=== PATIENT | female | born 1955 | race Caucasian/White ===

== ENCOUNTER 2017-06-12 15:36 | Emergency (ER) | payer OTHER, MEDICAID ==
[~2017-06-12] VITALS: Ht 162.6 cm; Wt 47.3 kg
[~2017-06-12 15:36] MED LIST: CARI350T; GABA-283 PO; MORP1TAB21 PO; VENTAER INH
[2017-06-12] MEDS ORDERED: MSIR30TA PO (15:43)
[2017-06-12 16:16] LABS: BASO % 0.3 % (0.0-1.0); EOS # 0.1 10^3/uL (0.0-0.50); EOS % 0.4 % (0.0-3.0); IMMATURE GRANULOCYTE % 0.5 % (0-0); LYMPH # 1.3 10^3/uL (1.5-4.5); LYMPH % 8.4 % (24.0-44.0); MEAN CORPUSCULAR HEMOGLOBIN 32.2 pg (27.0-33.0); MEAN CORPUSCULAR HGB CONC 33.7 g/dl (32.0-36.5); MEAN CORPUSCULAR VOLUME 95.6 fl (80.0-96.0); MONO # 1.1 10^3/uL (0.0-0.8); MONO % 6.8 % (0.0-5.0); NEUTROPHILS # 13.2 10^3/uL (1.8-7.7); NEUTROPHILS % 83.6 % (36.0-66.0); PLATELET COUNT, AUTOMATED 299 10^3/uL (150-450); RED CELL DISTRIBUTION WIDTH 13.3 % (11.5-14.5); WHITE BLOOD COUNT 15.8 10^3/uL (4.0-10.0)
[2017-06-12] MEDS: IPRATROPIUM 0.5MG/ALBUTEROL 2.5MG INH SOL UD 3ML (DUONEB)(J7620) NEB SCH ×3 (16:19→17:19)
[2017-06-12 16:26] LABS: INR 1.09
[2017-06-12 16:39] LABS: ALBUMIN 3.1 GM/DL (3.2-5.2); ALBUMIN/GLOBULIN RATIO 0.97 (1.00-1.93); ALKALINE PHOSPHATASE 89 U/L (45-117); ALT/SGPT 13 U/L (12-78); ANION GAP 5 MEQ/L (8-16); AST/SGOT 13 U/L (7-37); BILIRUBIN,DIRECT 0.2 MG/DL (0.0-0.2); BILIRUBIN,TOTAL 0.4 MG/DL (0.2-1.0); BLOOD UREA NITROGEN 7 MG/DL (7-18); CARBON DIOXIDE LEVEL 28 MEQ/L (21-32); CHLORIDE LEVEL 106 MEQ/L (98-107); GLOMERULAR FILTRATION RATE > 60.0 (>45); GLUCOSE, FASTING 97 MG/DL (80-110); SODIUM LEVEL 139 MEQ/L (136-145); TOTAL PROTEIN 6.3 GM/DL (6.4-8.2)
[2017-06-12] MEDS ORDERED: LASI20TA PO (17:42)
[2017-06-12] MEDS ORDERED: IPRAINH INH (17:42)
[2017-06-12 17:59] VITALS: BP 115/85
--- NOTE | 2017-06-12 19:44 | ECGEPIP ---
Stationary ECG Study [facility] - ED Test Date: 2017-06-12 Pat Name: CHARITY ZAVALETA Department: Room: - Gender: F Exhibit Preparator: SILVER : 1955 Requested By: Ale Lo Order Number: [id number] Reading MD: Shai Sullivan Measurements Intervals [place] Rate: 87 P: 86 ME: 120 QRS: 88 QRSD: 82 T: 55 QT: 327 QTc: 395 Interpretive Statements SINUS RHYTHM LEFT ATRIAL ENLARGEMENT SIMILAR TO 02/28/15 Electronically Signed On 06-12-2017 19:44:32 EST by Shai Sullivan
--- NOTE | 2017-06-13 07:01 | REP ---
PORTABLE CHEST: AP portable view of the chest is performed and compared to multiple prior exams, most recent of which is 10/07/2015. There appear to be increased interstitial markings bilaterally suggesting mild diffuse interstitial edema or infiltrate. Heart is not enlarged. No consolidating infiltrate is seen. Mediastinal silhouette is unremarkable. IMPRESSION: Findings suggesting mild diffuse bilateral interstitial edema or infiltrate. Signed by Nilson Dorsey MD 06/13/2017 08:34 P
== END 2017-06-12 18:05 | disposition home or self-care (01) ==
LOC: M ED 15:36
DX: J44.1 Chronic obstructive pulmonary disease with (acute) exacerbation (principal); I50.9 Heart failure, unspecified; J81.1 Chronic pulmonary edema; F17.200 Nicotine dependence, unspecified, uncomplicated; Z79.899 Other long term (current) drug therapy

== ENCOUNTER 2017-07-12 18:34 | Emergency (ER) | payer MEDICAID, OTHER ==
[2017-07-12] MEDS: BENZONATATE 100 MG CAP PO ×2 (20:13)
[2017-07-12] MEDS: ACETAMINOPHEN 325 MG TAB PO ×2 (20:14)
== END 2017-07-12 21:28 | disposition home or self-care (01) ==
LOC: M ED 18:34
DX: S43.421A Sprain of right rotator cuff capsule, initial encounter (principal); J01.90 Acute sinusitis, unspecified; X50.1XXA Overexertion from prolonged static or awkward postures, initial encounter; Y92.9 Unspecified place or not applicable; Y93.9 Activity, unspecified; M19.011 Primary osteoarthritis, right shoulder; J44.9 Chronic obstructive pulmonary disease, unspecified; F17.200 Nicotine dependence, unspecified, uncomplicated; Z79.891 Long term (current) use of opiate analgesic; Z79.899 Other long term (current) drug therapy
CPT/HCPCS: 73030

== ENCOUNTER → 2017-07-22 | Outpatient (CLI) | payer OTHER ==
[2017-07-22 17:34] LABS: BASO # 0.1 10^3/uL (0.0-0.2); BASO % 0.4 % (0.0-1.0); EOS # 0.2 10^3/uL (0.0-0.50); EOS % 1.9 % (0.0-3.0); HEMOGLOBIN 12.7 g/dl (12.0-16.0); IMMATURE GRANULOCYTE % 0.2 % (0-0); LYMPH # 4.1 10^3/uL (1.5-4.5); LYMPH % 35.3 % (24.0-44.0); MEAN CORPUSCULAR HEMOGLOBIN 31.8 pg (27.0-33.0); MEAN CORPUSCULAR HGB CONC 32.6 g/dl (32.0-36.5); MEAN CORPUSCULAR VOLUME 97.5 fl (80.0-96.0); MONO # 0.9 10^3/uL (0.0-0.8); MONO % 7.4 % (0.0-5.0); NEUTROPHILS # 6.3 10^3/uL (1.8-7.7); NEUTROPHILS % 54.8 % (36.0-66.0); PLATELET COUNT, AUTOMATED 296 10^3/uL (150-450); RED CELL DISTRIBUTION WIDTH 14.2 % (11.5-14.5); WHITE BLOOD COUNT 11.5 10^3/uL (4.0-10.0)
[2017-07-22 17:36] LABS: APPEARANCE, URINE CLEAR (CLEAR); BACTERIA, URINE AUTO NEGATIVE (NEGATIVE); BILIRUBIN, URINE AUTO NEGATIVE (NEGATIVE); BLOOD, URINE BLOOD NEGATIVE (NEGATIVE); COLOR, URINE STRAW (YELLOW); GLUCOSE, URINE (UA) AUTO NEGATIVE (NEGATIVE); KETONE, URINE AUTO NEGATIVE (NEGATIVE); LEUKOCYTE ESTERASE, URINE AUTO NEGATIVE (NEGATIVE); NITRITE, URINE AUTO NEGATIVE (NEGATIVE); PROTEIN, URINE AUTO NEGATIVE (NEGATIVE); RBC, URINE AUTO 1 /HPF (0-3); SPECIFIC GRAVITY URINE AUTO 1.002 (1.002-1.035); SQUAMOUS EPITHELIAL CELL UR AU 1 /HPF (0-6); UROBILINOGEN, URINE AUTO 0.2 mg/dL (0.0-2.0); WBC, URINE AUTO 0 /HPF (0-3)
[2017-07-22 17:40] LABS: ESTIMATED AVERAGE GLUCOSE 114 MG/DL (60-110); HEMOGLOBIN A1c 5.6 %
[2017-07-22 17:49] LABS: ALBUMIN 3.5 GM/DL (3.2-5.2); ALBUMIN/GLOBULIN RATIO 1.21 (1.00-1.93); ALKALINE PHOSPHATASE 79 U/L (45-117); ALT/SGPT 16 U/L (12-78); ANION GAP 7 MEQ/L (8-16); AST/SGOT 14 U/L (7-37); BILIRUBIN,TOTAL 0.2 MG/DL (0.2-1.0); BLOOD UREA NITROGEN 9 MG/DL (7-18); CALCIUM LEVEL 8.3 MG/DL (8.8-10.2); CARBON DIOXIDE LEVEL 31 MEQ/L (21-32); CHLORIDE LEVEL 99 MEQ/L (98-107); CHOLESTEROL LEVEL 184 MG/DL (<200); CHOLESTEROL RISK RATIO 2.421 (<5); CREATININE FOR GFR 0.47 MG/DL (0.55-1.30); FREE T4 0.97 NG/DL (0.76-1.46); GLOMERULAR FILTRATION RATE > 60.0 (>45); GLUCOSE, FASTING 136 MG/DL (70-100); HDL CHOLESTEROL 76 MG/DL (>40); LDL CHOLESTEROL 98.2 MG/DL (<100); NON-HDL-C 108 MG/DL; NT-PRO BNP 161 PG/ML (<125); POTASSIUM SERUM 3.9 MEQ/L (3.5-5.1); SODIUM LEVEL 137 MEQ/L (136-145); TOTAL PROTEIN 6.4 GM/DL (6.4-8.2); TRIGLYCERIDES LEVEL 49 MG/DL (<150)
== END ==
LOC: M LAB 15:48
DX: Z00.00 Encounter for general adult medical examination without abnormal findings (principal); R79.89 Other specified abnormal findings of blood chemistry
CPT/HCPCS: 84443

== ENCOUNTER → 2017-08-30 | Outpatient (CLI) | payer OTHER ==
[2017-08-30 18:56] LABS: BASO # 0.1 10^3/uL (0.0-0.2); BASO % 0.5 % (0.0-1.0); EOS # 0.1 10^3/uL (0.0-0.50); EOS % 1.1 % (0.0-3.0); HEMATOCRIT 42.6 % (36.0-47.0); IMMATURE GRANULOCYTE % 0.3 % (0-3.0); LYMPH # 2.8 10^3/uL (1.5-4.5); LYMPH % 28.3 % (24.0-44.0); MEAN CORPUSCULAR HEMOGLOBIN 31.2 pg (27.0-33.0); MEAN CORPUSCULAR HGB CONC 32.9 g/dl (32.0-36.5); MEAN CORPUSCULAR VOLUME 94.9 fl (80.0-96.0); MONO # 0.5 10^3/uL (0.0-0.8); MONO % 5.3 % (0.0-5.0); NEUTROPHILS # 6.4 10^3/uL (1.8-7.7); NEUTROPHILS % 64.5 % (36.0-66.0); PLATELET COUNT, AUTOMATED 387 10^3/uL (150-450); RED BLOOD COUNT 4.49 10^6/uL (4.00-5.40); RED CELL DISTRIBUTION WIDTH 13.3 % (11.5-14.5); WHITE BLOOD COUNT 9.9 10^3/uL (4.0-10.0)
[2017-08-30 19:00] LABS: APPEARANCE, URINE CLEAR (CLEAR); BACTERIA, URINE AUTO NEGATIVE (NEGATIVE); BILIRUBIN, URINE AUTO NEGATIVE (NEGATIVE); BLOOD, URINE BLOOD 1+ (NEGATIVE); COLOR, URINE YELLOW (YELLOW); GLUCOSE, URINE (UA) AUTO NEGATIVE (NEGATIVE); KETONE, URINE AUTO NEGATIVE (NEGATIVE); LEUKOCYTE ESTERASE, URINE AUTO TRACE (NEGATIVE); MUCUS, URINE SMALL (NEGATIVE); NITRITE, URINE AUTO NEGATIVE (NEGATIVE); PROTEIN, URINE AUTO NEGATIVE (NEGATIVE); RBC, URINE AUTO 1 /HPF (0-3); SPECIFIC GRAVITY URINE AUTO 1.012 (1.002-1.035); SQUAMOUS EPITHELIAL CELL UR AU 2 /HPF (0-6); UROBILINOGEN, URINE AUTO 0.2 mg/dL (0.0-2.0); WBC, URINE AUTO 3 /HPF (0-3)
[2017-08-30 19:17] LABS: ANION GAP 4 MEQ/L (8-16); BLOOD UREA NITROGEN 11 MG/DL (7-18); CALCIUM LEVEL 8.4 MG/DL (8.8-10.2); CARBON DIOXIDE LEVEL 32 MEQ/L (21-32); CHLORIDE LEVEL 100 MEQ/L (98-107); CREATININE FOR GFR 0.48 MG/DL (0.55-1.30); FREE T4 1.06 NG/DL (0.76-1.46); GLOMERULAR FILTRATION RATE > 60.0 (>45); GLUCOSE, FASTING 100 MG/DL (70-100); POTASSIUM SERUM 4.3 MEQ/L (3.5-5.1); SODIUM LEVEL 136 MEQ/L (136-145)
== END ==
LOC: M LAB 18:05
DX: R79.9 Abnormal finding of blood chemistry, unspecified (principal); R82.90 Unspecified abnormal findings in urine; R94.6 Abnormal results of thyroid function studies
CPT/HCPCS: 84443

== ENCOUNTER → 2017-09-16 | Outpatient (CLI) | payer OTHER | LOC: M RAD 14:10 | DX: R31.9 Hematuria, unspecified (principal) | CPT/HCPCS: 76775 ==

== ENCOUNTER → 2017-10-08 | Outpatient (REF) | payer OTHER ==
[2017-10-08 19:49] LABS: APPEARANCE, URINE CLEAR (CLEAR); BACTERIA, URINE AUTO NEGATIVE (NEGATIVE); BILIRUBIN, URINE AUTO NEGATIVE (NEGATIVE); BLOOD, URINE BLOOD NEGATIVE (NEGATIVE); COLOR, URINE YELLOW (YELLOW); GLUCOSE, URINE (UA) AUTO NEGATIVE (NEGATIVE); KETONE, URINE AUTO NEGATIVE (NEGATIVE); LEUKOCYTE ESTERASE, URINE AUTO NEGATIVE (NEGATIVE); NITRITE, URINE AUTO NEGATIVE (NEGATIVE); PROTEIN, URINE AUTO NEGATIVE (NEGATIVE); RBC, URINE AUTO 0 /HPF (0-3); SQUAMOUS EPITHELIAL CELL UR AU 1 /HPF (0-6); UROBILINOGEN, URINE AUTO 0.2 mg/dL (0.0-2.0); WBC, URINE AUTO 1 /HPF (0-3)
== END ==
LOC: M SMT 17:10
DX: R31.9 Hematuria, unspecified (principal)

== ENCOUNTER → 2018-11-27 | Outpatient (CLI) | payer MEDICARE, MEDICAID ==
[~2018-11-27] MED LIST changes: +CARI1TAB7; -CARI350T; -GABA-283 PO; +GABA-845 PO; +IPRAINH INH; +LASI20TA3 PO; +MSIR30TA PO; +TESS100C PO
--- NOTE | 2018-11-28 02:35 | REP ---
Clinical: Chest pain. Acute bronchitis. . Comparison: 06/12/2017 . Technique: PA and lateral. Findings: The mediastinum and cardiac silhouette are normal. The lung kellogg demonstrate chronic interstitial changes without acute consolidation, effusion, or pneumothorax. The skeletal structures are intact and normal. Impression: 1. No acute cardiopulmonary process. Electronically Signed by Paul Ayoub MD 11/28/2018 02:27 A
== END ==
LOC: M SMT 11:54
PROVIDERS: ATTEND Physician Assistant
DX: Z87.09 Personal history of other diseases of the respiratory system (principal)

== ENCOUNTER → 2019-02-17 | Outpatient (CLI) | payer MEDICARE ==
--- NOTE | 2019-02-18 11:58 | REP ---
Clinical: Cervical neck pain with recent trauma/fall. Technique: AP, lateral, flexion/extension, bilateral oblique and open mouth views of the cervical spine. Findings: Moderate multilevel degenerative disc osteophyte complexes noted predominantly involving C3 through C7. Alignment and lordosis maintained. No acute fracture / compression injury or subluxation. Open mouth view demonstrates normal C1-C2 articulation and odontoid process. Impression: Moderate multilevel degenerative spondylosis. No acute fracture / compression injury or subluxation. Electronically Signed by Pual Ayoub MD 02/18/2019 02:57 A
== END ==
LOC: M WUC 09:58
PROVIDERS: ATTEND Physician Assistant
DX: M47.892 Other spondylosis, cervical region (principal)

== ENCOUNTER 2019-03-08 00:54 | Emergency (ER) | payer MEDICARE ==
[~2019-03-08] VITALS: Ht 157.5 cm; Wt 50.0 kg
[2019-03-08] MEDS ORDERED: ALEN70TA74 (01:06)
[2019-03-08] MEDS ORDERED: MORP30TASA (01:06)
[2019-03-08] MEDS ORDERED: GABA600T4 (01:06)
[2019-03-08] MEDS ORDERED: FLUTISP (01:06)
[2019-03-08] MEDS ORDERED: BREO1INH3 (01:06)
[2019-03-08] MEDS ORDERED: MOVA1TAB2 (01:06)
[2019-03-08] MEDS ORDERED: OMEP-221 (01:06)
[2019-03-08] MEDS ORDERED: CITA20TA6 (01:06)
[2019-03-08] MEDS ORDERED: LISI10TA4 (01:06)
[2019-03-08 02:32] LABS: INFLUENZA A AMPLIFICATION NEGATIVE (NEGATIVE); INFLUENZA B AMPLIFICATION NEGATIVE (NEGATIVE)
[2019-03-08 02:43] VITALS: BP 128/67
== END 2019-03-08 02:45 | disposition home or self-care (01) ==
LOC: M ED 00:54
DX: J02.0 Streptococcal pharyngitis (principal); F17.200 Nicotine dependence, unspecified, uncomplicated; I10 Essential (primary) hypertension; J44.9 Chronic obstructive pulmonary disease, unspecified; M54.9 Dorsalgia, unspecified; K21.9 Gastro-esophageal reflux disease without esophagitis; Z79.899 Other long term (current) drug therapy

== ENCOUNTER → 2019-04-26 | Outpatient (CLI) | payer MEDICARE, MEDICAID ==
[~2019-04-26] MED LIST changes: +ALEN70TA74; +BREO1INH3; +CITA20TA6; +FLUTISP; +GABA600T4; +LISI10TA4; +MORP30TASA; +MOVA1TAB2; +OMEP-221
[2019-04-26 18:36] LABS: BLOOD UREA NITROGEN 5 MG/DL (7-18); CREATININE FOR GFR 0.46 MG/DL (0.55-1.30); GLOMERULAR FILTRATION RATE > 60.0 (>45)
== END ==
LOC: M LAB 17:44
PROVIDERS: ATTEND Physician Assistant
DX: Z01.818 Encounter for other preprocedural examination (principal)

== ENCOUNTER → 2019-05-05 | Outpatient (CLI) | payer MEDICARE, MEDICAID ==
[~2019-05-05] MED LIST changes: +PROHANCE 279.3MG/ML 5ML VIAL (A9576) As Ordered ONE
--- NOTE | 2019-05-06 09:35 | REP ---
MRI cervical and thoracic spines: 05/05/2019. Indication: Metastatic workup. Cervical thoracic pain. Comparison: No previous MRI studies are available for comparison. Technique: Multiplanar short and long TR sequences of the cervical and thoracic spines are present including post-gadolinium imaging. 10 ml of IV ProHance were administered. Findings: There are no areas of concerning marrow signal or pathologic gadolinium enhancement. No pathologic compression fracture is present. Endplate degenerative sequelae are noted. The visualized cord is normal. New new There is straightening of the cervical lordosis. Multilevel spondylosis of the cervicothoracic spine are present most pronounced at C4/C5 with minimal flattening of the ventral cord. There is no severe spinal canal narrowing. Minimal disc bulging is noted within the thoracic spine. The neural foramina appear patent. Impression: There is no evidence of an acute cervical thoracic injury or metastatic disease. Atypical hemangioma within T10. Multilevel spondylosis without severe narrowing of the spinal canal or cord compression. No abnormal cord signal. Electronically Signed by Flo Malagon DO 05/06/2019 09:26 A
== END ==
LOC: M RAD 16:31
PROVIDERS: ATTEND Physician Assistant
DX: M54.6 Pain in thoracic spine (principal); M47.892 Other spondylosis, cervical region
CPT/HCPCS: 72156; 72157; A9576

== ENCOUNTER 2021-05-02 20:53 | Emergency (ER) | payer MEDICARE, MEDICAID ==
[~2021-05-02] VITALS: Ht 162.6 cm; Wt 45.9 kg
[~2021-05-02 20:53] MED LIST changes: -ALEN70TA74; +ALEN70TA82; +GABA-283 PO; -GABA-845 PO; +LISI10TA22; -LISI10TA4; -MOVA1TAB2; +NALO25TA; -PROHANCE 279.3MG/ML 5ML VIAL (A9576) As Ordered ONE
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
[2021-05-02 22:01] LABS: RSV AMPLIFICATION NEGATIVE (NEGATIVE)
--- NOTE | 2021-05-02 22:43 | REPVR ---
PROCEDURE INFORMATION: Exam: XR Chest Exam date and time: 05/02/2021 10:20 PM Age: 65 years old Clinical indication: Shortness of breath; Additional info: COPD TECHNIQUE: Imaging protocol: XR of the chest. Views: 2 views. COMPARISON: CR CHEST 2 VIEWS 11/27/2018 12:02 PM FINDINGS: Lungs: There are linear densities in the right upper lobe, which likely represent scarring. No lung consolidation or pulmonary edema is noted. The lungs are well aerated. Pleural spaces: Unremarkable. No pleural effusion. No pneumothorax. Heart/Mediastinum: Unremarkable. No cardiomegaly. Bones/joints: There is an old healed fracture deformity involving the surgical neck of the left humerus. There is a slight levoscoliosis at the thoracolumbar junction. Organs: There are surgical clips in the right upper quadrant of the abdomen. IMPRESSION: No acute findings. Electronically signed by: Alessio Fishman On 05/02/2021 22:42:49 PM
--- OUTSIDE RECORDS SUMMARY | 2021-05-03 00:57 | CCD ---
Author Author [facility] Organization [facility] Address Unknown Phone Unavailable Care Team Providers Care [employer] Name Role Phone Doctor Provided, Family PHYS [...] is protected by Article 27-F of the [place] State Public Health law. If you continue you may have access to information: Regarding HIV / AIDS; Provided by facilities licensed or operated by the [facility] Office of Mental Health; or Provided by the [facility] Office for People With Developmental Disabilities. If such information is present, then the following [facility] mandated warning applies: This information has been [...] law may result in a fine or retirement sentence or both. A general authorization for the release of medical or other information is NOT sufficient authorization for further disc losure. Allergies and Adverse Reactions Type Description Substance Reaction Status Data Source(s ) Drug allergy No Known Drug Allergies No Known Drug Allergies [facility] Family History Family Member Name Family Member Gender Family Member Status Date o f Status Description Data Source(s) Unknown Condition [facility] Unknown Condition [facility] Unknown Condition [facility] Unknown Condition [facility] Unknown Condition [facility] Unknown Condition [facility] Encounters Encounter Providers Location Date Indications Data Source(s ) Outpatient Attender: ROSALBA Amayaerrer: No Famil y Doctor Provided 02/28/2021 02:38:00 PM EDT [facility] Outpatient Attender: ROSALBA DORANTES MD 02/28/2021 12:00:00 AM EDT FOLLOW-UP [facility] FOLLOW-UP Preadmit Attender: ROSALBA DORANTES MD 12/27/2020 12:00 :00 AM EDT FOLLOW-UP [facility] FOLLOW-UP Outpatient Attender: ROSALBA DORANTES MD 11/29/2020 12:00 :00 AM EDT F/U [facility] F/U Outpatient Attender: ROSALBA DORANTES MD 11/28/2020 04:06 :00 PM EDT Z13.89 [facility] Z13.89 Outpatient Attender: ROSALBA Amayaerrer: Den CABALLERO 11/28/2020 02:50:00 PM EDT [facility] Preadmit Attender: ROSALBA DORANTES MD 11/15/2020 12:00 :00 AM EDT FOLLOW-UP [facility] FOLLOW-UP Outpatient Attender: ROSALBA DORANTES MDReferrer: Den CABALLERO 08/16/2020 02:02:00 PM EST [facility] Outpatient Attender: ROSALBA DORANTES MD 08/16/2020 12:00:00 AM EST FOLLOW-UP [facility] FOLLOW-UP Preadmit Attender: ROSALBA DORANTES MD 07/18/2020 12:00 :00 AM EST F/U [facility] F/U Outpatient Attender: ROSALBA DORANTES MDReferrer: Den CABALLERO 04/18/2020 02:07:00 PM EDT [facility] Outpatient Attender: ROSALBA DORANTES MD 04/18/2020 12:00:00 AM EDT FOLLOW-UP [facility] FOLLOW-UP Immunizations Vaccine Date Status Description Data Source(s) COVID-19 VACCINE Moderna 11/07/2020 12:00:00 AM EDT completed [facility] Vaccine Series Complete: YESThis Data wa s Submitted to [facility] Via [employer]. COVID-19 VACCINE Moderna 10/07/2020 12:00:00 AM EDT completed [facility] Vaccine Series Complete: NOThis Data was Submitted to [facility] Via [employer]. Medications Medication Brand Name Start Date Product Form Dose Route Admi nistrative Instructions Pharmacy Instructions Status Indications Reaction Description Data Source(s) tizanidine 4 MG Oral Capsule Tizanidine Tizanidine 12/06/2020 04: 34:29 PM EDT 4 MG active [facility] tizanidine 2 MG Oral Capsule Tizanidine Tizanidine 11/28/2020 04: 21:40 PM EDT 2 MG completed [facility] Morphine Sulfate 30 MG Extended Release Oral Tablet Morphine 2020 03:35:37 PM EDT [address] [facility] gabapentin 600 MG Oral Tablet Gabapentin Gabapentin 021 03:35:19 PM EDT 600 MG active [facility] Morphine Sulfate 30 MG Extended Release Oral Tablet Morphine 10/18/2020 10:50:08 AM EDT 30 MG completed [facility] Carisoprodol 350 MG Oral Tablet Carisoprodol 10/18/2020 10:49:59 AM EDT 350 MG completed [facility] Morphine Sulfate 30 MG Extended Release Oral Tablet Morphine 09/21/2020 12:46:31 PM EDT 30 MG completed [facility] Carisoprodol 350 MG Oral Tablet Carisoprodol 09/21/2020 12:46:17 PM EDT 350 MG completed [facility] Morphine Sulfate 30 MG Extended Release Oral Tablet Morphine 08/20/2020 08:05:57 AM EST 30 MG completed [facility] Carisoprodol 350 MG Oral Tablet Carisoprodol 08/20/2020 08:05:45 AM EST 350 MG completed [facility] Morphine Sulfate 30 MG Extended Release Oral Tablet Morphine 07/22/2020 08:35:45 PM EST 30 MG completed [facility] gabapentin 600 MG Oral Tablet Gabapentin Gabapentin 021 08:35:34 PM EST 600 MG completed [facility] Carisoprodol 350 MG Oral Tablet Carisoprodol 07/22/2020 08:35:25 PM EST 350 MG completed [facility] Carisoprodol 350 MG Oral Tablet Carisoprodol 06/20/2020 10:05:37 AM EST 350 MG completed [facility] Morphine Sulfate 30 MG Extended Release Oral Tablet Morphine 06/20/2020 10:05:09 AM EST 30 MG completed [facility] Morphine Sulfate 30 MG Extended Release Oral Tablet Morphine 05/23/2020 11:44:21 AM EST 30 MG completed [facility] Carisoprodol 350 MG Oral Tablet Carisoprodol 05/23/2020 11:43:41 AM EST 350 MG completed [facility] Morphine Sulfate 30 MG Extended Release Oral Tablet Morphine 04/18/2020 03:19:06 PM EDT [address] [facility] Morphine Sulfate 30 MG Extended Release Oral Tablet Morphine 04/18/2020 03:19:06 PM EDT 30 MG completed [facility] Carisoprodol 350 MG Oral Tablet Carisoprodol 04/18/2020 03:18:50 PM EDT 350 MG completed [facility] Carisoprodol 350 MG Oral Tablet Carisoprodol 04/18/2020 03:18:50 PM EDT 350 MG active [facility] gabapentin 600 MG Oral Tablet Gabapentin Gabapentin 11:22:29 PM EDT 600 MG active [facility] gabapentin 600 MG Oral Tablet Gabapentin Gabapentin 11:22:29 PM EDT 600 MG completed [facility] Carisoprodol 350 MG Oral Tablet Carisoprodol 03/16/2020 11:22:22 PM EDT 350 MG completed [facility] Carisoprodol 350 MG Oral Tablet Carisoprodol 03/16/2020 11:22:22 PM EDT 350 MG completed [facility] Morphine Sulfate 30 MG Extended Release Oral Tablet Morphine 03/16/2020 11:21:48 PM EDT 30 MG completed [facility] Morphine Sulfate 30 MG Extended Release Oral Tablet Morphine 03/16/2020 11:21:48 PM EDT 30 MG completed [facility] gabapentin 600 MG Oral Tablet Gabapentin Gabapentin 07:46:34 PM EDT 600 MG completed [facility] gabapentin 600 MG Oral Tablet Gabapentin Gabapentin 07:46:34 PM EDT 600 MG completed [facility] Morphine Sulfate 30 MG Extended Release Oral Tablet Morphine 02/19/2020 09:13:30 AM EDT 30 MG completed [facility] Morphine Sulfate 30 MG Extended Release Oral Tablet Morphine 02/19/2020 09:13:30 AM EDT 30 MG completed [facility] Carisoprodol 350 MG Oral Tablet Carisoprodol 02/19/2020 09:13:13 AM EDT 350 MG completed [facility] Carisoprodol 350 MG Oral Tablet Carisoprodol 02/19/2020 09:13:13 AM EDT 350 MG completed [facility] gabapentin 600 MG Oral Tablet Gabapentin Gabapentin 04:11:18 PM EDT 600 MG completed [facility] gabapentin 600 MG Oral Tablet Gabapentin Gabapentin 04:11:18 PM EDT 600 MG completed [facility] Insurance Providers Payer name Policy type / Coverage type Policy ID Covered libertarian ID Covered libertarian's relationship to valerio Policy Valerio Plan Information MEDICAID M [id number] Self [id number] [facility] I [id number] Self [id number] [facility] I [id number] Self [id number] [facility] I [id number] Self [id number] [facility] MEDICAID [id number] Sandra [id number] [facility] I [id number] Self [id number] MEDICAID [id number] Sandra [id number] OTHER B TRANSPLANT Self TRANSPLAN T [employer] COMMUNITY PLAN MCDO [id number] SP [id number] [facility] Community Plan Commercial [id number] Self [id number] Managed Care - Community Plan [facility] P UNAVAILABLE S UNAVAILABLE [facility]/Community [facility] Health Maintenance Organization (O) [id number] Self [id number] COUNT INCLUDES THE [facility] COMMUNITY PLAN MCDO [id number] SP [id number] [facility] O [id number] S [id number] COUNT INCLUDES THE [facility] COMMUNITY PLAN MCDO [id number] SP [id number] MEDICAID [id number] SP [id number] [facility] COMMUNTY PLAN [id number] [employer] COMMUNITY PLAN XIX [id number] 18 [id number] COUNT INCLUDES THE [facility] COMMUNITY PLAN XIX -I/P [id number] 18 [id number] COUNT INCLUDES THE [facility] COMMUNITY PLAN [facility] [id number] SP [id number] [facility] O [id number] S [id number] [facility] Communty Plan Medicaid [id number] Self [id number] [facility] O [id number] S [id number] [employer] AMERICHOICE XIX -HMO [id number] 18 [id number] MEDICAID -I/P [id number] 18 [id number] [employer] AMERICHOICE XIX -HMO [id number] 18 [id number] [employer] COMMUNITY PLAN XIX -I/P [id number] 18 [id number] [employer] COMMUNITY PLAN MCDO [id number] SP [id number] SELF PAY ONLY [id number] SP [id number] [employer] NO FAULT [id number] SP [id number] [employer] O [id number] O [id number] [employer] NO FAULT O [id number] O [id number] D Managed Care [facility] P UNAVAILABLE S UNAVAILABLE MEDICAID [id number] SP [id number] [employer] PLAN [id number] SP [id number] SELF PAY SP UNAVAILABLE S UNAVAILA BLE [facility] MEDICAID PEDRO O [id number] S [id number] MEDICAID W [id number] BLUE CHOICE OPTION O [id number] S [id number] [employer] HMO [place] O [id number] S [id number] [facility]) O [id number] S [id number] MEDICAID P [id number] S [id number] MEDICAID M [id number] S [id number] [facility] [id number] SP [id number] MEDICAID [id number] SP [id number] [facility]) O [id number] S [id number] [facility] [id number] SP [id number] [facility] [id number] SP [id number] COUNT INCLUDES THE [facility] COMMUNITY PLAN [facility] [id number] SP [id number] [facility] Community Plan Commercial [id number] Self [id number] Managed Care - [facility] Plan P UNAVAILABLE S UNAVAILABLE Problems, Conditions, and Diagnoses No Information Surgeries/Procedures No Information Results ID Date Data Source [id number] 02/28/2021 02:39:00 PM EDT [facility] Name: LEANA ZAVALETA : 1955 Age: 65 MR#: [id number] Admit Date: 02/28/21 Provider: Rosalba Dorantes MD [...] was never done. Was a working unit.) [facility] Medical History Chronic low back pain Chronic [...] Coronavirus Screening Have you traveled outside of [facility] or [facility] in the last 14 days.: No Has [...] M54.16 - Radiculopathy, lumbar region SNOMED Code(s): 403259474 Category: Medical Plan: activity modification smoking cessation encouraged pt encouraged on increasing PO intake -consider ensure daily -denies any eating disorder -good nutrition stressed consider repeat imaging if symptoms regress pt defers SCS referral (2) Therapeutic drug monitoring: Status: Chronic Code(s): Z51.81 - Encounter for therapeutic drug level monitoring SNOMED Code(s): 840444451 Category: Medical Plan: medication controlling pain. prn [...] ORT - Low risk, Pill count corrrect, PREPRESS OPERATOR checked prior to refills, Do not suspect [...] by Rosalba Dorantes MD> Rosalba Dorantes MD 02/28/21 1522 Rosalba Dorantes MD SIGNATURE DA Report Cosigners: D: SHIVA 02/28/21 1439 T: DEQUAN 02/28/21 1439 CC: Name Value Range Interpretation Code Description Data Felecia rce(s) Supporting Document(s) ID Date Data Source [id number] 12/02/2020 08:34:00 PM EDT [facility] 12/01/20 - FAXED 0910. HUDSY.PRESCRIBED DRUG 1: MORPHINE Name Value Range Interpretation Code Description Data Felecia rce(s) Supporting Document(s) MEDMATCH See scanned report [facility] ID Date Data Source [id number] 11/28/2020 03:08:00 PM EDT [facility] Name: LEANA ZAVALETA : 1955 Age: 65 MR#: [id number] Admit Date: 11/28/20 Provider: Rosalba Dorantes MD [...] was never done. Was a working unit.) [facility] Medical History Chronic low back pain Chronic [...] Coronavirus Screening Have you traveled outside of [facility] or [facility] in the last 14 days.: No Has [...] M54.16 - Radiculopathy, lumbar region SNOMED Code(s): 922231621 Category: Medical Plan: activity as tolerated consider repeat imaging if sx regress pt defers SCS (2) Therapeutic drug monitoring: Status: Chronic Code(s): Z51.81 - Encounter for therapeutic drug level monitoring SNOMED Code(s): 882852978 Category: Medical Plan: pt able to wean off SOMA. risk and benefits of tizantidine d/w pt and she would like to proceed. see below Medications: New tizanidine 2 mg PO TID PRN 30 caps 0RF muscle spasticity MDD 3 Therapeutic Drug Monitoring Therapeutic Drug Monitoring: Pain contract in place, ORT - Low risk, PREPRESS OPERATOR checked prior to refills, Do not suspect [...] rce(s) Supporting Document(s) ID Date Data Source [id number] 08/16/2020 02:07:00 PM [facility] Name: LEANA ZAVALETA : 1955 Age: 64 MR#: [id number] Admit Date: 08/16/20 Provider: Rosalba Dorantes MD [...] Gabapentin,Lyrica (no help) and Narcotics Previous treatments: licensed physical therapist assistant apy, injections (epi, joint, etc.) (LESI and TPI no help), surgery(in 1999), heat and other (SCS placed [address] Chandler -this helped. Was removed in 2003 in order to have rectal surgery that was never done. Was a working unit.) [facility] Medical History Chronic low back pain Chronic [...] month check up , morphine 30 rx [id number] 23 left , soma 350 rx [id number] 15 left , [address] DR DORANTES INTO [...] Coronavirus Screening Have you traveled outside of [facility] or [facility] in the last 14 days.: No Has [...] M54.16 - Radiculopathy, lumbar region SNOMED Code(s): 089130106 (Problem) Plan of care:: pt pain currently manageable. SCS still an option -pt defers at thistime. Would need updated imaging. (2) Therapeutic drug monitoring: Status: Chronic Problem priority:: Primary Diagnosis Code(s): Z51.81 - Encounter for therapeutic drug level monitoring SNOMED Code(s): 153900383 (Problem) Plan of care:: medication managing her pain with no side effects. pt has failed multiple treatments including surgery. has just weaned soma to bid. will consider further reduction at next OV. consider change to tizantidine. MED 90. UDS and contract up to date. PREPRESS OPERATOR checked prior to refills. ORT -low risk. [...] rce(s) Supporting Document(s) ID Date Data Source [id number] 04/18/2020 01:11:00 PM EDT [facility] Name: LEANA ZAVALETA : 1955 Age: 64 MR#: [id number] Admit Date: 04/18/20 Provider: Rosalba Dorantes MD [...] was never done. Was a working unit.) [facility] Medical History (Updated 04/18/20 @ 14:33 by [...] Coronavirus Screening Have you traveled outside of [facility] or [facility] in the last 14 days.: No Has [...] M54.16 - Radiculopathy, lumbar region SNOMED Code(s): 561866621 (Problem) Plan of care:: pt defers referral for SCS at this time. Would need updated imaging at that time. (2) Therapeutic drug monitoring: Status: Chronic Problem priority:: Primary Diagnosis Code(s): Z51.81 - Encounter for therapeutic drug level monitoring SNOMED Code(s): 433666531 (Problem) Plan of care:: medication managing her pain with no side effects. pt has failed multiple treatments including surgery. has weaned soma to tid. d/w pt and will reduce down to bid at next refill. MED 90. UDS and contract up to date. PREPRESS OPERATOR checked prior to refill today. ORT -lowrisk. [...] Dorantes MD> Rosalba Dorantes MD 04/18/20 1535 Rosalba Dorantes MD SIGNATURE DA Report Cosigners: D: SHIVA 04/18/20 131 T: GERMAN[place] 04/18/201310 CC: Name Value Range Interpretation Code Description Data Felecia rce(s) Supporting Document(s) Procedure Social History Code Duration Value Status Description Data Source(s ) 03/08/2020 07:07:00 AM EDT Current every day smoker co mpleted Current every day smoker [facility] Smoking 03/08/2020 07:07:00 AM EDT Current every day smoker co mpleted Current every day smoker [facility] 03/08/2020 07:07:00 AM EDT Current every day smoker co mpleted Current every day smoker [facility] Smoking 03/08/2020 07:07:00 AM EDT Current every day smoker co mpleted Current every day smoker [facility]
[2021-05-03] MEDS ORDERED: BREO1INH3 PO (01:18)
[2021-05-03] MEDS ORDERED: PROAAER10 INH (01:18)
[2021-05-03] MEDS ORDERED: PRED20TA PO (01:18)
[2021-05-03] MEDS ORDERED: predniSONE 20 MG TAB PO ONE (01:20)
[2021-05-03 01:37] VITALS: BP 138/72
--- NOTE | 2021-05-03 20:30 | ECGEPIP ---
[facility] - ED Test Date: 2021-05-02 Pat Name: CHARITY ZAVALETA Department: Room: - Gender: Female Pharmacy Clinical Specialist: MARISOLDIA : 1955 Requested By: SHANI Kelly PA-C Order Number: [id number] Reading MD: Ale Lo Measurements Intervals [place] Rate: 76 P: 84 NV: 134 QRS: 90 QRSD: 70 T: 76 QT: 372 QTc: 418 Interpretive Statements Normal sinus rhythm Rightward axis decreased rate 05/25/17 Electronically Signed on 05-03-2021 20:29:45 EST by Ale Lo
== END 2021-05-03 01:40 | disposition home or self-care (01) ==
LOC: M ED 20:53
DX: J44.1 Chronic obstructive pulmonary disease with (acute) exacerbation (principal); F17.210 Nicotine dependence, cigarettes, uncomplicated
CPT/HCPCS: 71046; 87631; 93005; 99284; J7512

== ENCOUNTER 2021-08-05 23:11 | Emergency (ER) | payer MEDICAID, MEDICARE, OTHER ==
[~2021-08-05] VITALS: Ht 167.6 cm; Wt 44.8 kg
[~2021-08-05 23:11] MED LIST changes: +BREO1INH3 PO; -OMEP-221; +OMEP40CA5; +PRED20TA PO; +PROAAER10 INH
[2021-08-05 23:12] VITALS: BP 137/84
[2021-08-05] MEDS ORDERED: TIZA10TA (23:25)
[2021-08-05] MEDS ORDERED: BREO1INH (23:25)
[2021-08-06] MEDS ORDERED: NAPROXEN 250 MG TAB PO ONE (00:55)
[2021-08-06] MEDS ORDERED: OMEP40CA5 PO (01:03)
[2021-08-06] MEDS ORDERED: NAPR-837 PO (01:03)
[2021-08-06] MEDS ORDERED: BREO1INH3 INH (01:03)
[2021-08-06] MEDS ORDERED: VENTAER INH (01:03)
== END 2021-08-06 01:18 | disposition home or self-care (01) ==
LOC: M ED 23:11
DX: S13.4XXA Sprain of ligaments of cervical spine, initial encounter (principal); S33.5XXA Sprain of ligaments of lumbar spine, initial encounter; Z76.0 Encounter for issue of repeat prescription; Y92.513 Shop (commercial) as the place of occurrence of the external cause; Y93.9 Activity, unspecified; Y99.9 Unspecified external cause status; Z79.899 Other long term (current) drug therapy

== ENCOUNTER 2021-09-01 04:37 | Emergency (ER) | payer MEDICARE, OTHER ==
[~2021-09-01] VITALS: Ht 162.6 cm; Wt 50.0 kg
[~2021-09-01 04:37] MED LIST changes: +BREO1INH; +BREO1INH3 INH; +NAPR-837 PO; +OMEP40CA5 PO; +TIZA10TA
[2021-09-01] MEDS ORDERED: CAPS0.022 TOP (09:14)
[2021-09-01] MEDS ORDERED: DICL20GE TP (09:14)
[2021-09-01] MEDS ORDERED: PRED20TA PO (09:14)
[2021-09-01 09:23] VITALS: BP 127/77
== END 2021-09-01 09:24 | disposition home or self-care (01) ==
LOC: M ED 04:37
DX: M50.30 Other cervical disc degeneration, unspecified cervical region (principal); M79.621 Pain in right upper arm; W00.9XXA Unspecified fall due to ice and snow, initial encounter; J44.9 Chronic obstructive pulmonary disease, unspecified; F17.200 Nicotine dependence, unspecified, uncomplicated; Y92.009 Unspecified place in unspecified non-institutional (private) residence as the place of occurrence of the external cause; Y93.9 Activity, unspecified; Y99.9 Unspecified external cause status; Z79.899 Other long term (current) drug therapy

== ENCOUNTER 2021-09-28 16:53 | Inpatient (IN) | payer MEDICARE ==
[~2021-09-28] VITALS: Ht 165.1 cm; Wt 60.0 kg
[~2021-09-28 16:53] MED LIST changes: +CAPS0.022 TOP; +DICL20GE TP; -MORP30TASA; +MORP30TASA PO; -TIZA10TA; +TIZA10TA PO
[2021-09-28] MEDS ORDERED: BREO1INH3 PO (17:24)
[2021-09-28] MEDS ORDERED: PROAAER10 INH (17:24)
[2021-09-28] MEDS ORDERED: methylPREDNISolone 125MG 2ML VIAL IV ONE (17:25)
[2021-09-28] MEDS ORDERED: PRED20TA PO (17:29)
[2021-09-28] MEDS ORDERED: ALBU83IN NEB (17:29)
[2021-09-28] MEDS ORDERED: EASYMIS17 XX (17:30)
[2021-09-28] MEDS: COMBIVENT RESPIMAT 100-20MCG INHALER 4GM INH SCH (17:39)
[2021-09-28 17:46] LABS: VENOUS BASE EXCESS 1.5 (-2.0-2.0); VENOUS HCO3 27.2 MEQ/L (23.0-27.0); VENOUS O2 SATURATION 74.3 % (60.0-80.0); VENOUS PARTIAL PRESSURE CO2 47.1 mmHg (38.0-50.0); VENOUS PARTIAL PRESSURE O2 38.1 mmHg (30.0-50.0); VENOUS STANDARD HCO3 25.2 MEQ/L; VENOUS TOTAL CO2 28.7 MEQ/L (24.0-28.0)
[2021-09-28 17:52] LABS: BASO % 0.2 % (0.0-1.0); HEMOGLOBIN 13.6 g/dl (12.0-15.5); LYMPH # 1.2 10^3/uL (1.5-5.0); LYMPH % 4.9 % (24.0-44.0); MEAN CORPUSCULAR HEMOGLOBIN 31.1 pg (27.0-33.0); MEAN CORPUSCULAR HGB CONC 33.2 g/dl (32.0-36.5); MEAN CORPUSCULAR VOLUME 93.8 fl (80.0-96.0); MONO # 1.2 10^3/uL (0.0-0.8); MONO % 4.9 % (2.0-8.0); NEUTROPHILS # 21.1 10^3/uL (1.5-8.5); NEUTROPHILS % 89.1 % (36.0-66.0); PLATELET COUNT, AUTOMATED 369 10^3/uL (150-450); RED BLOOD COUNT 4.37 10^6/uL (4.00-5.40); WHITE BLOOD COUNT 23.7 10^3/uL (4.0-10.0)
[2021-09-28 18:18] LABS: ALBUMIN 3.2 GM/DL (3.2-5.2); ALT/SGPT 19 U/L (12-78); BILIRUBIN,DIRECT 0.2 MG/DL (0.0-0.2); BILIRUBIN,TOTAL 0.3 MG/DL (0.2-1.0); BLOOD UREA NITROGEN 14 MG/DL (7-18); CALCIUM LEVEL 9.3 MG/DL (8.8-10.2); CARBON DIOXIDE LEVEL 30 MEQ/L (21-32); CHLORIDE LEVEL 100 MEQ/L (98-107); CREATININE FOR GFR 0.51 MG/DL (0.55-1.30); GLOMERULAR FILTRATION RATE > 60.0 (>45); GLUCOSE, FASTING 160 MG/DL (70-100); NT-PRO BNP 107 PG/ML (<125); POTASSIUM SERUM 4.1 MEQ/L (3.5-5.1); SODIUM LEVEL 136 MEQ/L (136-145); THYROID STIMULATING HORMONE 0.439 uIU/ML (0.358-3.740); TOTAL PROTEIN 6.7 GM/DL (6.4-8.2)
[2021-09-28] MEDS ORDERED: ISOVUE-370 76% 100ML VIAL As Ordered ONE (18:30)
[2021-09-28] MEDS ORDERED: MAALOX 30 ML SUSP *UDC PO PRN (19:05)
[2021-09-28] MEDS ORDERED: LEVALBUTEROL 1.25 MG/0.5 ML CONCENTRATE NEB NEB PRN (19:05)
[2021-09-28] MEDS ORDERED: ACETAMINOPHEN TAB 650MG DOSE (2X325MG) PO PRN (19:05)
[2021-09-28] MEDS ORDERED: MOM 30ML SUSPENSION UDC PO PRN (19:05)
[2021-09-28 19:20] LABS: INR 0.99; PROTHROMBIN TIME 13.5 SECONDS (12.7-14.5)
[2021-09-28 19:21] LABS: PARTIAL THROMBOPLASTIN TIME 28.3 SECONDS (25.9-37.0)
[2021-09-28] MEDS ORDERED: KETOROLAC 30 MG/ML 1ML VIAL IV ONE (19:45)
[2021-09-28] MEDS ORDERED: BREO1INH3 INH (19:56)
[2021-09-28] MEDS ORDERED: CAPS0.022 TOP (19:56)
[2021-09-28] MEDS ORDERED: GABA800T4 PO (19:56)
[2021-09-28] MEDS ORDERED: OMEP40CA5 PO (19:56)
[2021-09-28] MEDS ORDERED: DICL20GE TOP (19:56)
[2021-09-28] MEDS: ADVAIR HFA 230/21MCG INHALER INH SCH (20:00)
[2021-09-28] MEDS ORDERED: methylPREDNISolone 40MG 1ML VIAL IV SCH (20:00)
[2021-09-28] MEDS ORDERED: HOME MED LIST COMPLETE! XX SCH (20:00)
[2021-09-28] MEDS: IPRATROPIUM 0.5MG/ALBUTEROL 2.5MG INH SOL UD 3ML (DUONEB) NEB SCH (20:00)
[2021-09-28] MEDS ORDERED: MORPHINE 30 MG SA TAB PO SCH (21:00)
[2021-09-28 21:45] VITALS: BP 119/65
[2021-09-28] MEDS ORDERED: MORPHINE 15 MG SA TAB PO ONE (22:00)
[2021-09-28] MEDS: GABAPENTIN 400MG CAP PO SCH (22:13)
[2021-09-28] MEDS: guaiFENesin ER 600 MG TAB PO SCH (22:14)
[2021-09-28] MEDS: CAPSAICIN 0.025% CR 60 GM TOP SCH (22:15)
[2021-09-29] MEDS: NICOTINE 21MG/24HR 1 EA TRANSDERMAL TD PRN (01:29)
[2021-09-29] MEDS: IPRATROPIUM 0.5MG/ALBUTEROL 2.5MG INH SOL UD 3ML (DUONEB) NEB SCH ×4 (02:31→19:35)
[2021-09-29 05:55] VITALS: BP 132/78
[2021-09-29] MEDS: ADVAIR HFA 230/21MCG INHALER INH SCH ×2 (07:20→19:36)
[2021-09-29 08:33] LABS: BASO % 0.1 % (0.0-1.0); EOS # 0.1 10^3/uL (0.0-0.5); EOS % 0.2 % (0.0-3.0); HEMATOCRIT 39.4 % (36.0-47.0); HEMOGLOBIN 13.3 g/dl (12.0-15.5); LYMPH # 1.5 10^3/uL (1.5-5.0); LYMPH % 7.2 % (24.0-44.0); MEAN CORPUSCULAR HEMOGLOBIN 31.7 pg (27.0-33.0); MEAN CORPUSCULAR HGB CONC 33.8 g/dl (32.0-36.5); MONO % 9.9 % (2.0-8.0); NEUTROPHILS % 81.9 % (36.0-66.0); PLATELET COUNT, AUTOMATED 379 10^3/uL (150-450); RED BLOOD COUNT 4.19 10^6/uL (4.00-5.40); WHITE BLOOD COUNT 20.8 10^3/uL (4.0-10.0)
[2021-09-29] MEDS: MORPHINE 30 MG SA TAB PO SCH ×2 (09:00→20:17)
[2021-09-29 09:04] LABS: MONO # 2.1 10^3/uL (0.0-0.8)
[2021-09-29 09:06] LABS: BLOOD UREA NITROGEN 15 MG/DL (7-18); CALCIUM LEVEL 8.7 MG/DL (8.8-10.2); CARBON DIOXIDE LEVEL 30 MEQ/L (21-32); CHLORIDE LEVEL 99 MEQ/L (98-107); CREATININE FOR GFR 0.45 MG/DL (0.55-1.30); GLOMERULAR FILTRATION RATE > 60.0 (>45); GLUCOSE, FASTING 107 MG/DL (70-100); POTASSIUM SERUM 4.3 MEQ/L (3.5-5.1); SODIUM LEVEL 133 MEQ/L (136-145)
[2021-09-29] MEDS ORDERED: ALBUTEROL SULFATE 2.5 MG/0.5 ML INH NEB SOLN NEB PRN (09:15)
[2021-09-29] MEDS: methylPREDNISolone 125MG 2ML VIAL IV SCH ×3 (09:32→17:47)
[2021-09-29] MEDS: ENOXAPARIN 40MG/0.4ML SYRINGE (J1650 PER 10MG) SC SCH (09:49)
[2021-09-29] MEDS: GABAPENTIN 400MG CAP PO SCH ×4 (09:49→20:17)
[2021-09-29] MEDS: OMEPRAZOLE 20MG CAP PO SCH (09:49)
[2021-09-29] MEDS: CAPSAICIN 0.025% CR 60 GM TOP SCH ×2 (09:50→20:18)
[2021-09-29] MEDS: guaiFENesin ER 600 MG TAB PO SCH ×2 (09:51→20:16)
[2021-09-29 14:00] VITALS: BP 156/98
[2021-09-29] MEDS: tiZANidine 4 MG TAB PO PRN (17:31)
[2021-09-29 20:12] VITALS: BP 155/98
[2021-09-30] MEDS: IPRATROPIUM 0.5MG/ALBUTEROL 2.5MG INH SOL UD 3ML (DUONEB) NEB SCH ×4 (01:22→19:46)
[2021-09-30] MEDS: methylPREDNISolone 125MG 2ML VIAL IV SCH ×3 (01:48→17:06)
[2021-09-30] MEDS: tiZANidine 4 MG TAB PO PRN ×2 (01:49→17:10)
[2021-09-30] MEDS: NICOTINE 21MG/24HR 1 EA TRANSDERMAL TD PRN (03:14)
[2021-09-30 06:30] VITALS: BP 116/69
[2021-09-30 06:38] LABS: HEMATOCRIT 36.8 % (36.0-47.0); HEMOGLOBIN 12.3 g/dl (12.0-15.5); MEAN CORPUSCULAR HEMOGLOBIN 32.1 pg (27.0-33.0); MEAN CORPUSCULAR HGB CONC 33.4 g/dl (32.0-36.5); MEAN CORPUSCULAR VOLUME 96.1 fl (80.0-96.0); PLATELET COUNT, AUTOMATED 336 10^3/uL (150-450); RED BLOOD COUNT 3.83 10^6/uL (4.00-5.40); WHITE BLOOD COUNT 16.7 10^3/uL (4.0-10.0)
[2021-09-30 07:05] LABS: BLOOD UREA NITROGEN 9 MG/DL (7-18); CALCIUM LEVEL 9.1 MG/DL (8.8-10.2); CARBON DIOXIDE LEVEL 33 MEQ/L (21-32); CHLORIDE LEVEL 99 MEQ/L (98-107); CREATININE FOR GFR 0.32 MG/DL (0.55-1.30); GLOMERULAR FILTRATION RATE > 60.0 (>45); GLUCOSE, FASTING 174 MG/DL (70-100); SODIUM LEVEL 134 MEQ/L (136-145)
[2021-09-30] MEDS: ADVAIR HFA 230/21MCG INHALER INH SCH ×2 (07:10→19:47)
[2021-09-30 07:54] LABS: ATYPICAL LYMPH 1 % (0-5); LYMPHOCYTES 12 % (16-44); MONOCYTES 13 % (0-5); NEUTROPHILS 65 % (28-66)
[2021-09-30 07:55] LABS: PLATELET ESTIMATE NORMAL (NORMAL)
[2021-09-30] MEDS ORDERED: cefTRIAXone SOD 1 GM in D5W MINI-BAG PLUS 50 ML IV SCH (08:00)
[2021-09-30 08:17] VITALS: BP 160/80
[2021-09-30] MEDS: ENOXAPARIN 40MG/0.4ML SYRINGE (J1650 PER 10MG) SC SCH (08:46)
[2021-09-30] MEDS ORDERED: AZITHROMYCIN INJ 500 MG, VIAL MATE ADAPTER 1 EACH in NS 250 ML IV SCH (09:00)
[2021-09-30] MEDS: guaiFENesin ER 600 MG TAB PO SCH ×2 (09:26→20:11)
[2021-09-30] MEDS: GABAPENTIN 400MG CAP PO SCH ×4 (09:26→20:10)
[2021-09-30] MEDS: OMEPRAZOLE 20MG CAP PO SCH (09:27)
[2021-09-30] MEDS: MORPHINE 30 MG SA TAB PO SCH ×2 (09:34→20:11)
[2021-09-30] MEDS: CAPSAICIN 0.025% CR 60 GM TOP SCH ×2 (09:37→20:12)
[2021-09-30 14:00] VITALS: BP 150/84
[2021-09-30 14:15] VITALS: BP 150/84
[2021-09-30 14:30] VITALS: BP 144/80
[2021-09-30 15:02] LABS: MONO REFLEX EBV COMP NEGATIVE (NEGATIVE)
[2021-09-30 22:00] VITALS: BP 141/79
[2021-10-01] MEDS: IPRATROPIUM 0.5MG/ALBUTEROL 2.5MG INH SOL UD 3ML (DUONEB) NEB SCH ×4 (01:26→19:05)
[2021-10-01] MEDS: methylPREDNISolone 125MG 2ML VIAL IV SCH ×2 (01:40→09:03)
[2021-10-01 06:00] VITALS: BP 148/98
[2021-10-01 07:03] LABS: BASO # 0.1 10^3/uL (0.0-0.2); BASO % 0.4 % (0.0-1.0); EOS % 0.1 % (0.0-3.0); HEMATOCRIT 41.5 % (36.0-47.0); HEMOGLOBIN 13.7 g/dl (12.0-15.5); LYMPH # 1.6 10^3/uL (1.5-5.0); MEAN CORPUSCULAR HEMOGLOBIN 31.8 pg (27.0-33.0); MEAN CORPUSCULAR VOLUME 96.3 fl (80.0-96.0); MONO # 1.2 10^3/uL (0.0-0.8); MONO % 7.8 % (2.0-8.0); NEUTROPHILS # 12.8 10^3/uL (1.5-8.5); NEUTROPHILS % 80.3 % (36.0-66.0); PLATELET COUNT, AUTOMATED 414 10^3/uL (150-450); RED BLOOD COUNT 4.31 10^6/uL (4.00-5.40); WHITE BLOOD COUNT 15.9 10^3/uL (4.0-10.0)
[2021-10-01] MEDS: ADVAIR HFA 230/21MCG INHALER INH SCH ×2 (07:14→19:06)
[2021-10-01 07:19] LABS: BLOOD UREA NITROGEN 10 MG/DL (7-18); CALCIUM LEVEL 9.3 MG/DL (8.8-10.2); CARBON DIOXIDE LEVEL 34 MEQ/L (21-32); CHLORIDE LEVEL 99 MEQ/L (98-107); CREATININE FOR GFR 0.46 MG/DL (0.55-1.30); GLOMERULAR FILTRATION RATE > 60.0 (>45); GLUCOSE, FASTING 180 MG/DL (70-100); POTASSIUM SERUM 4.4 MEQ/L (3.5-5.1); SODIUM LEVEL 138 MEQ/L (136-145)
[2021-10-01] MEDS: LevoFLOXacin 750 MG TABLET PO SCH (09:00)
[2021-10-01] MEDS: GABAPENTIN 400MG CAP PO SCH ×4 (09:00→21:10)
[2021-10-01] MEDS: guaiFENesin ER 600 MG TAB PO SCH ×2 (09:01→21:10)
[2021-10-01] MEDS: OMEPRAZOLE 20MG CAP PO SCH (09:02)
[2021-10-01] MEDS: MORPHINE 30 MG SA TAB PO SCH ×2 (09:03→21:11)
[2021-10-01] MEDS: ENOXAPARIN 40MG/0.4ML SYRINGE (J1650 PER 10MG) SC SCH (09:04)
[2021-10-01] MEDS: CAPSAICIN 0.025% CR 60 GM TOP SCH ×2 (09:05→21:12)
[2021-10-01] MEDS: tiZANidine 4 MG TAB PO PRN ×2 (13:31→17:41)
[2021-10-01 14:00] VITALS: BP 161/98
[2021-10-01] MEDS ORDERED: SODIUM CHLORIDE 0.9% NASAL GEL 15GM (AYR) PRN (17:00)
[2021-10-01 22:00] VITALS: BP 157/96
[2021-10-01] MEDS ORDERED: methylPREDNISolone 125MG 2ML VIAL IV SCH (22:00)
[2021-10-02] MEDS: IPRATROPIUM 0.5MG/ALBUTEROL 2.5MG INH SOL UD 3ML (DUONEB) NEB SCH ×3 (01:51→12:57)
[2021-10-02] MEDS: tiZANidine 4 MG TAB PO PRN ×2 (05:35→13:15)
[2021-10-02] MEDS: LevoFLOXacin 750 MG TABLET PO SCH (05:35)
[2021-10-02] MEDS: ADVAIR HFA 230/21MCG INHALER INH SCH (05:58)
[2021-10-02 06:00] VITALS: BP 176/90
[2021-10-02 06:12] VITALS: BP 176/90
[2021-10-02 06:53] LABS: HEMATOCRIT 40.1 % (36.0-47.0); MEAN CORPUSCULAR HEMOGLOBIN 30.6 pg (27.0-33.0); MEAN CORPUSCULAR HGB CONC 32.4 g/dl (32.0-36.5); MEAN CORPUSCULAR VOLUME 94.4 fl (80.0-96.0); PLATELET COUNT, AUTOMATED 426 10^3/uL (150-450); RED BLOOD COUNT 4.25 10^6/uL (4.00-5.40); WHITE BLOOD COUNT 18.4 10^3/uL (4.0-10.0)
[2021-10-02] MEDS ORDERED: amLODIPine 5 MG TAB PO ONE (07:00)
[2021-10-02 07:06] VITALS: BP 148/88
[2021-10-02 07:15] LABS: BLOOD UREA NITROGEN 15 MG/DL (7-18); CREATININE FOR GFR 0.46 MG/DL (0.55-1.30); GLUCOSE, FASTING 138 MG/DL (70-100)
[2021-10-02 07:16] LABS: CARBON DIOXIDE LEVEL 33 MEQ/L (21-32); CHLORIDE LEVEL 100 MEQ/L (98-107); GLOMERULAR FILTRATION RATE > 60.0 (>45); POTASSIUM SERUM 4.3 MEQ/L (3.5-5.1); SODIUM LEVEL 137 MEQ/L (136-145)
[2021-10-02] MEDS ORDERED: LEVO750T13 PO (07:22)
[2021-10-02] MEDS ORDERED: PRED20TA PO (07:22)
[2021-10-02] MEDS ORDERED: MUCI600T31 PO (07:22)
[2021-10-02 07:46] LABS: ATYPICAL LYMPH 4 % (0-5); LYMPHOCYTES 9 % (16-44); MONOCYTES 9 % (0-5); NEUTROPHILS 75 % (28-66)
[2021-10-02 07:48] LABS: ANISOCYTOSIS 1+; PLATELET ESTIMATE NORMAL (NORMAL)
[2021-10-02] MEDS ORDERED: predniSONE 20 MG TAB PO SCH (09:00)
[2021-10-02] MEDS: GABAPENTIN 400MG CAP PO SCH ×2 (09:08→13:15)
[2021-10-02] MEDS: MORPHINE 30 MG SA TAB PO SCH (09:10)
[2021-10-02] MEDS: OMEPRAZOLE 20MG CAP PO SCH (09:11)
[2021-10-02] MEDS: guaiFENesin ER 600 MG TAB PO SCH (09:11)
[2021-10-02] MEDS: ENOXAPARIN 40MG/0.4ML SYRINGE (J1650 PER 10MG) SC SCH (09:13)
[2021-10-02] MEDS: CAPSAICIN 0.025% CR 60 GM TOP SCH (09:14)
[2021-10-02] MEDS ORDERED: PROAAER10 INH (11:18)
[2021-10-02] MEDS ORDERED: ALBU83IN NEB (11:18)
[2021-10-02] MEDS ORDERED: BREO1INH3 PO (11:18)
[2021-10-02] MEDS ORDERED: OMEP40CA5 PO (11:18)
[2021-10-02 14:00] VITALS: BP 116/85
[2021-10-03 14:09] LABS: EBV AB TO NUCLEAR ANTIGEN 75.8 U/mL (0.0-17.9); EBV VIRAL CAPSID AG IgM <36.0 U/mL (0.0-35.9)
== END 2021-10-02 17:15 | disposition home or self-care (01) | DRG 192 ==
LOC: M ED 16:53 → EDBD 16:53 → M ED INP 19:05 → M MS5PR 21:10
PROVIDERS: ADMIT Family Medicine; ATTEND Internal Medicine
DX: J44.1 Chronic obstructive pulmonary disease with (acute) exacerbation (principal); K21.9 Gastro-esophageal reflux disease without esophagitis; M54.2 Cervicalgia; M54.50 Low back pain, unspecified; F17.200 Nicotine dependence, unspecified, uncomplicated; D72.829 Elevated white blood cell count, unspecified; Z99.81 Dependence on supplemental oxygen; Z79.899 Other long term (current) drug therapy; N63.0 Unspecified lump in unspecified breast

== ENCOUNTER 2021-10-17 20:47 | Inpatient (IN) | payer MEDICARE ==
[~2021-10-17] VITALS: Ht 167.6 cm; Wt 43.4 kg
[~2021-10-17 20:47] MED LIST changes: +ALBU83IN NEB; +DICL20GE TOP; +EASYMIS17 XX; +GABA800T4 PO; +LEVO750T13 PO; +MUCI600T31 PO
[2021-10-17] MEDS ORDERED: COMBIVENT RESPIMAT 100-20MCG INHALER 4GM INH ONE (21:00)
[2021-10-17] MEDS ORDERED: methylPREDNISolone 125MG 2ML VIAL IV ONE (21:05)
[2021-10-17] MEDS ORDERED: hydrALAZINE 20MG/ML 1ML VIAL (J0360 PER 20MG) IV ONE (21:10)
[2021-10-17 21:20] LABS: ABG BASE EXCESS 2.3 (-2.0-2.0); ABG HCO3 29.2 MEQ/L (22.0-26.0); ABG PARTIAL PRESSURE CO2 55.7 mmHg (35.0-45.0); ABG PARTIAL PRESSURE O2 112.5 mmHg (75.0-100.0); ABG STANDARD HCO3 26.5 MEQ/L (22.0-26.0); ABG pH (ARTERIAL) 7.338 UNITS (7.350-7.450)
[2021-10-17 21:24] LABS: BASO % 0.2 % (0.0-1.0); EOS % 0.1 % (0.0-3.0); HEMOGLOBIN 11.9 g/dl (12.0-15.5); LYMPH # 1.2 10^3/uL (1.5-5.0); LYMPH % 4.9 % (24.0-44.0); MEAN CORPUSCULAR HGB CONC 32.2 g/dl (32.0-36.5); MEAN CORPUSCULAR VOLUME 96.4 fl (80.0-96.0); MONO % 6.4 % (2.0-8.0); NEUTROPHILS % 87.9 % (36.0-66.0); PLATELET COUNT, AUTOMATED 295 10^3/uL (150-450); RED BLOOD COUNT 3.84 10^6/uL (4.00-5.40)
[2021-10-17 21:54] LABS: MONO # 1.6 10^3/uL (0.0-0.8)
[2021-10-17 21:54] LABS: BLOOD UREA NITROGEN 5 MG/DL (7-18); CARBON DIOXIDE LEVEL 31 MEQ/L (21-32); CHLORIDE LEVEL 97 MEQ/L (98-107); CREATININE FOR GFR 0.37 MG/DL (0.55-1.30); GLOMERULAR FILTRATION RATE > 60.0 (>45); GLUCOSE, FASTING 161 MG/DL (70-100); POTASSIUM SERUM 3.9 MEQ/L (3.5-5.1); SODIUM LEVEL 134 MEQ/L (136-145)
[2021-10-17 21:55] LABS: ALBUMIN 3.2 GM/DL (3.2-5.2); ALT/SGPT 27 U/L (12-78); BILIRUBIN,DIRECT 0.3 MG/DL (0.0-0.2); BILIRUBIN,TOTAL 0.7 MG/DL (0.2-1.0); CALCIUM LEVEL 8.8 MG/DL (8.8-10.2); NT-PRO BNP 250 PG/ML (<125); THYROID STIMULATING HORMONE 0.838 uIU/ML (0.358-3.740); TOTAL PROTEIN 6.3 GM/DL (6.4-8.2)
[2021-10-17] MEDS ORDERED: IPRATROPIUM 0.5MG/ALBUTEROL 2.5MG INH SOL UD 3ML (DUONEB) NEB ONE (22:15)
[2021-10-17] MEDS ORDERED: OMEP40CA5 PO (23:35)
[2021-10-17] MEDS ORDERED: ALBU8.5H INH (23:35)
[2021-10-17] MEDS ORDERED: ALBU83IN INH (23:35)
[2021-10-17] MEDS ORDERED: HOME MED LIST COMPLETE! XX SCH (23:40)
[2021-10-18] VITALS (12 sets, daily range): BP systolic 119–170; BP diastolic 71–89; O2SAT 90–97
[2021-10-18] MEDS ORDERED: tiZANidine 4 MG TAB PO PRN
[2021-10-18] MEDS ORDERED: ALBUTEROL SULFATE 2.5 MG/0.5 ML INH NEB SOLN INH PRN
[2021-10-18] MEDS ORDERED: ALBUTEROL 90 MCG/ACT 8GM HFA INHALER INH PRN
[2021-10-18] MEDS ORDERED: LR 1,000 ML IV SCH (00:15)
[2021-10-18] MEDS: IPRATROPIUM 0.5MG/ALBUTEROL 2.5MG INH SOL UD 3ML (DUONEB) NEB SCH ×4 (00:34→19:19)
[2021-10-18] MEDS: PIPERACILLIN/TAZOBACTAM SOD 4.5 GM in D5W MINI-BAG PLUS 50 ML IV SCH ×2 (00:42→06:05)
[2021-10-18 06:29] LABS: BASO % 0.1 % (0.0-1.0); HEMATOCRIT 36.7 % (36.0-47.0); HEMOGLOBIN 11.9 g/dl (12.0-15.5); LYMPH # 0.5 10^3/uL (1.5-5.0); LYMPH % 2.7 % (24.0-44.0); MEAN CORPUSCULAR HEMOGLOBIN 30.9 pg (27.0-33.0); MEAN CORPUSCULAR HGB CONC 32.4 g/dl (32.0-36.5); MEAN CORPUSCULAR VOLUME 95.3 fl (80.0-96.0); MONO # 0.2 10^3/uL (0.0-0.8); MONO % 1.3 % (2.0-8.0); NEUTROPHILS # 17.2 10^3/uL (1.5-8.5); NEUTROPHILS % 95.1 % (36.0-66.0); PLATELET COUNT, AUTOMATED 296 10^3/uL (150-450); RED BLOOD COUNT 3.85 10^6/uL (4.00-5.40)
[2021-10-18 06:51] LABS: BLOOD UREA NITROGEN 6 MG/DL (7-18); CREATININE FOR GFR 0.39 MG/DL (0.55-1.30); GLOMERULAR FILTRATION RATE > 60.0 (>45); GLUCOSE, FASTING 183 MG/DL (70-100); SODIUM LEVEL 140 MEQ/L (136-145)
[2021-10-18 06:52] LABS: ALBUMIN 2.9 GM/DL (3.2-5.2); ALT/SGPT 24 U/L (12-78); BILIRUBIN,TOTAL 0.6 MG/DL (0.2-1.0); CALCIUM LEVEL 9.5 MG/DL (8.8-10.2); CARBON DIOXIDE LEVEL 31 MEQ/L (21-32); CHLORIDE LEVEL 103 MEQ/L (98-107); POTASSIUM SERUM 4.6 MEQ/L (3.5-5.1); TOTAL PROTEIN 5.8 GM/DL (6.4-8.2)
[2021-10-18] MEDS: SYMBICORT 80/4.5MCG INHALER 6GM INH SCH ×2 (08:03→19:19)
[2021-10-18] MEDS: OMEPRAZOLE 20MG CAP PO SCH (08:45)
[2021-10-18] MEDS: GABAPENTIN 400MG CAP PO SCH ×4 (08:45→20:45)
[2021-10-18] MEDS: predniSONE 20 MG TAB PO SCH (08:45)
[2021-10-18] MEDS: ENOXAPARIN 40MG/0.4ML SYRINGE (J1650 PER 10MG) SC SCH (08:46)
[2021-10-18] MEDS: MORPHINE 30 MG SA TAB PO SCH ×2 (14:08→20:45)
[2021-10-19] VITALS: BP_SYST 125; BP_SYST 144; BP_DIAS 65; BP_DIAS 67
[2021-10-19] MEDS: IPRATROPIUM 0.5MG/ALBUTEROL 2.5MG INH SOL UD 3ML (DUONEB) NEB SCH ×2 (02:33→07:20)
[2021-10-19 05:28] LABS: BASO % 0.1 % (0.0-1.0); EOS # 0.1 10^3/uL (0.0-0.5); EOS % 0.6 % (0.0-3.0); HEMATOCRIT 32.2 % (36.0-47.0); HEMOGLOBIN 10.5 g/dl (12.0-15.5); LYMPH % 11.2 % (24.0-44.0); MEAN CORPUSCULAR HEMOGLOBIN 31.1 pg (27.0-33.0); MEAN CORPUSCULAR HGB CONC 32.6 g/dl (32.0-36.5); MEAN CORPUSCULAR VOLUME 95.3 fl (80.0-96.0); MONO # 1.4 10^3/uL (0.0-0.8); MONO % 7.7 % (2.0-8.0); NEUTROPHILS # 14.3 10^3/uL (1.5-8.5); NEUTROPHILS % 79.7 % (36.0-66.0); PLATELET COUNT, AUTOMATED 288 10^3/uL (150-450); RED BLOOD COUNT 3.38 10^6/uL (4.00-5.40); WHITE BLOOD COUNT 17.9 10^3/uL (4.0-10.0)
[2021-10-19 05:53] LABS: ALBUMIN 2.7 GM/DL (3.2-5.2); ALT/SGPT 25 U/L (12-78); BILIRUBIN,TOTAL 0.4 MG/DL (0.2-1.0); BLOOD UREA NITROGEN 10 MG/DL (7-18); CALCIUM LEVEL 8.8 MG/DL (8.8-10.2); CARBON DIOXIDE LEVEL 31 MEQ/L (21-32); CHLORIDE LEVEL 100 MEQ/L (98-107); CREATININE FOR GFR 0.46 MG/DL (0.55-1.30); GLOMERULAR FILTRATION RATE > 60.0 (>45); GLUCOSE, FASTING 160 MG/DL (70-100); POTASSIUM SERUM 3.7 MEQ/L (3.5-5.1); SODIUM LEVEL 135 MEQ/L (136-145); TOTAL PROTEIN 5.3 GM/DL (6.4-8.2)
[2021-10-19] MEDS: SYMBICORT 80/4.5MCG INHALER 6GM INH SCH (07:23)
[2021-10-19 07:37] VITALS: BP 102/55
[2021-10-19] MEDS: ENOXAPARIN 40MG/0.4ML SYRINGE (J1650 PER 10MG) SC SCH ×2 (08:41→09:00)
[2021-10-19] MEDS: predniSONE 20 MG TAB PO SCH (08:41)
[2021-10-19] MEDS: OMEPRAZOLE 20MG CAP PO SCH (08:41)
[2021-10-19] MEDS: GABAPENTIN 400MG CAP PO SCH ×2 (08:41→13:33)
[2021-10-19] MEDS: MORPHINE 30 MG SA TAB PO SCH (08:49)
[2021-10-19] MEDS ORDERED: DOXYCYCLINE HYCLATE 100MG TABLET PO SCH (09:00)
[2021-10-19] MEDS ORDERED: PRED20TA PO (09:23)
[2021-10-19] MEDS ORDERED: DOXY100T PO (09:23)
== END 2021-10-19 16:08 | disposition home health service (06) | DRG 191 ==
LOC: M ED 20:47 → EDBD 20:47 → M ED INP 22:34 → M PCU 10-18 00:14
PROVIDERS: ADMIT Family Medicine; ATTEND Family Medicine
DX: J44.1 Chronic obstructive pulmonary disease with (acute) exacerbation (principal); E46 Unspecified protein-calorie malnutrition; Z68.1 Body mass index [BMI] 19.9 or less, adult; G47.33 Obstructive sleep apnea (adult) (pediatric); I10 Essential (primary) hypertension; I16.0 Hypertensive urgency; K21.9 Gastro-esophageal reflux disease without esophagitis; R63.6 Underweight; Z91.19 Patient's noncompliance with other medical treatment and regimen; Z88.8 Allergy status to other drugs, medicaments and biological substances; Z91.14 Patient's other noncompliance with medication regimen; F17.210 Nicotine dependence, cigarettes, uncomplicated

== ENCOUNTER → 2021-11-06 | Outpatient (REF) ==
[~2021-11-06] MED LIST changes: +ALBU8.5H INH; +ALBU83IN INH; +DOXY100T PO
== END ==
LOC: M LAB 08:55